=== PATIENT | male | born 1985 | race African-American/Black ===

== ENCOUNTER 2016-11-25 18:21 | Emergency (ER) | payer OTHER ==
[2016-11-25] MEDS ORDERED: OXYCODONE-ACETAMINOPHEN 5-325 MG TABLET PO ONE (21:42)
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
[2016-11-25] MEDS ORDERED: HYDROCODONE/ACETAMINOPHEN 5-325 MG 6 TAB/DSPK PO PRN (22:51)
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
[2016-11-25 23:06] VITALS: BP 118/83
== END 2016-11-25 23:06 | disposition home or self-care (01) ==
LOC: ER 18:21
DX: S00.532A Contusion of oral cavity, initial encounter (principal); R68.84 Jaw pain; V49.40XA Driver injured in collision with unspecified motor vehicles in traffic accident, initial encounter; Z98.890 Other specified postprocedural states; Z88.6 Allergy status to analgesic agent
CPT/HCPCS: 70110; 99283